=== PATIENT | female | born 1985 | race Caucasian/White ===

== ENCOUNTER 2017-12-09 19:51 | Emergency (ER) | payer BC, OTHER ==
[2017-12-09 20:11] VITALS: BP 128/87
[2017-12-09] MEDS ORDERED: Penicillin V Potassium 500 MG Tab PO ONE (20:36)
--- NOTE | 2017-12-09 20:51 | EDM.PDOC ---
ED HPI GENERAL MEDICAL PROBLEM - General Chief Complaint: Headache Stated Complaint: HEADACHE Time Seen by Provider: 12/09/17 20:24 Source of Information: Reports: Patient History Limitations: Reports: No Limitations - History of Present Illness INITIAL COMMENTS - FREE TEXT/NARRATIVE: Patient is a 32-year-old female presents ED complaining of left-sided facial pain for the past 2 days. States symptoms came on Sunday progressed to got worse. She has been taking Tylenol every 4 hours since minimal relief. She believes most of the discomfort is originating from her #18 tooth. States the pain initially started with the tooth with any temperature eating or drinking fluids now radiates into the jaw and has dissipated into her face extending to her ear and down her neck. She has a history of root canals 2 with similar symptoms but not as severe. States she cannot get comfortable. She has no history of trigeminal neuralgia and/or recent history of frequent headaches. She is 36-1/2 weeks . Due date is scheduled for January 04. States this morning she did have a fever documented as 101F. Has had poor sleep, poor appetite and notes pain does wax and wane in intensity. She is a appointment scheduled with a dentist scheduled for this coming Sunday. She denies any sore throat, ear drainage, difficult swallowing, nausea/vomiting, chest pain, shortness of breath, stiff neck, or any additional complaints. Treatments SPINNING BATH PERSON: Reports: Other (see below) Other Treatments SPINNING BATH PERSON: tylenol Left Headache Pain Score (Numeric/FACES): 8 - Related Data Allergies Allergy/AdvReac Type Severity Reaction Status Date / Time codeine Allergy Itching Verified 08/13/15 16:38 Home Meds: Home Meds Ondansetron [Zofran ODT] 4 mg PO Q8H PRN #10 tab.dis 08/12/15 [Rx] Metoclopramide [Reglan] 10 mg PO Q6H #10 tablet 08/13/15 [Rx] Citalopram Hydrobromide [Celexa] 20 mg PO DAILY 12/09/17 [History] Folic Acid 200 mg PO DAILY 12/09/17 [History] Montelukast Sodium [Singulair] 10 mg PO BEDTIME 12/09/17 [History] PNV95/Ferrous Fumarate/FA [ Tablet] 1 tab PO DAILY 05/20/18 [History] Past Medical History Gastrointestinal History: Reports: Other (See Below) Other Gastrointestinal History: c-diff Genitourinary History: Reports: Renal Calculus 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 ED EXAM, ENT - Physical Exam Exam: See Below Exam Limited By: No Limitations General Appearance: Alert, WD/WN, No Apparent Distress Eye Exam: Bilateral Eye: Normal Inspection Ears: Normal External Exam, Normal Canal, Hearing Grossly Normal, Normal TMs Nose: Normal Inspection, Normal Mucousa, No Blood Mouth/Throat: Normal Inspection, Normal Gums, Normal Lips, Normal Oropharynx, Dental Tenderness (#18). No: Dental Trauma, Drooling, Dry Mucous Membrane, Muffled Voice, Oral Ulcers, Peritonsillar Mass, Pharyngeal Erythema, Teething, Throat Pain, Throat Swelling, Tongue Swelling, Tonsillar Erythema, Tonsillar Exudates, Tonsillar Swelling, Trismus, Uvular Deviation, Uvular Edema Head: Atraumatic, Normocephalic Neck: Normal Inspection, Supple, Full Range of Motion, Other (tenderness along the left sided sternocleidomastoid no swelling, rash, decreased range of motion noted.). No: Lymphadenopathy (L), Lymphadenopathy (R) Respiratory/Chest: No Respiratory Distress, Lungs Clear, Normal Breath Sounds, No Accessory Muscle Use, Chest Non-Tender Cardiovascular: Normal Peripheral Pulses, Regular Rate, Rhythm Extremities: Normal Inspection Neurological: Alert, Oriented, CN II-XII Intact, Normal Cognition, No Motor/ Sensory Deficits Psychiatric: Normal Affect, Normal Mood Skin: Warm, Dry, Intact, Normal Color, No Rash Course - Vital Signs Last Recorded V/S: Last Vital Signs Temp 98.9 F 12/09/17 20:09 Pulse 93 12/09/17 20:09 Resp 20 12/09/17 20:09 BP 128/87 12/09/17 20:09 Pulse Ox 100 12/09/17 20:09 - Orders/Labs/Meds Labs: Laboratory Tests 12/09/17 12/09/17 Range/Units 20:58 20:58 WBC 13.44 H (3.98-10.04) K/mm3 RBC 3.80 L (3.98-5.22) M/mm3 Hgb 11.4 (11.2-15.7) gm/L Hct 34.3 (34.1-44.9) % MCV 90.3 (79.4-94.8) fl MCH 30.0 (25.6-32.2) pg MCHC 33.2 (32.2-35.5) g/dl RDW Std Deviation 44.3 (36.4-46.3) fL Plt Count 229 (182-369) K/mm3 MPV 10.9 (9.4-12.3) fl Neutrophils % (Manual) 74 H (40-60) % Band Neutrophils % 0 (0-10) % Lymphocytes % (Manual) 17 L (20-40) % Atypical Lymphs % 0 % Monocytes % (Manual) 8 (2-10) % Eosinophils % (Manual) 1 (0.7-5.8) % Basophils % (Manual) 0 L (0.1-1.2) Platelet Estimate Adequate Plt Morphology Comment Normal RBC Morph Comment Normal Sodium 139 (136-145) mEq/L Potassium 3.9 (3.5-5.1) mEq/L Chloride 106 (98-107) mEq/L Carbon Dioxide 22 (21-32) mEq/L Anion Gap 14.9 (5-15) BUN 9 (7-18) mg/dL Creatinine 0.7 (0.55-1.02) mg/dL Est Cr Clr Drug Dosing 122.81 mL/min Estimated GFR (MDRD) > 60 (>60) mL/min BUN/Creatinine Ratio 12.9 L (14-18) Glucose 85 (74-106) mg/dL Calcium 9.4 (8.5-10.1) mg/dL Total Bilirubin 0.2 (0.2-1.0) mg/dL AST 15 (15-37) U/L ALT 18 (14-59) U/L Alkaline Phosphatase 157 H (46-116) U/L C-Reactive Protein < 0.2 (<1.0) mg/dL Total Protein 6.0 L (6.4-8.2) g/dl Albumin 2.3 L (3.4-5.0) g/dl Globulin 3.7 gm/dL Albumin/Globulin Ratio 0.6 L (1-2) Meds: Medications Discontinued Medications Generic Name Dose Route Start Last Admin Trade Name Letty PRN Reason Stop Dose Admin Penicillin V Potassium 500 mg 12/09/17 20:36 12/09/17 21:03 Veetids PO 12/09/17 20:37 500 mg ONETIME ONE Administration - Re-Assessments/Exams Free Text/Narrative Re-Assessment/Exam: Performed inferior alveolar nerve block with Marcaine 0.5% with no significant change. Still complaining of some left-sided cheek and left sided lateral discomfort. No swelling noted. No lymphadenopathy. Suspect this coming from the tooth. Patient does have a history of poor dentition with this significant amount of dental work performed. Patient did not have significant relief with the dental injection. She did report a fever earlier this morning. Otherwise she 's been afebrile since. On examination do not have definitive diagnosis as to the cause. Patient states previous root canals had similar pain but this is more severe. She has an appt with Dentist for Sunday unless she can get in sooner. I have opted to obtain basic labs. Labs reviewed: White blood cell count 13.44, hemoglobin 11.4, neutrophil percent is 74, no bandemia chemistry panel essentially normal, alk phosphatase mildly elevated 157, CRP normal. 2139 Reassessment, patient states symptoms have not drastically improved. Discussed obtaining imaging such has ultrasound of the neck and/or CT maxillofacial bones to evaluate for abscess. With shared decision making we will wait and see if the discomfort improves with antibiotic therapy. She does not have a ride home. I will provide a short course of hydrocodone 5-325 for discomfort and a 7 day course of pen vee k. I will discharge patient home with instructions as documented. Departure - Departure Time of Disposition: 21:54 Disposition: Home, Self-Care 01 Condition: Good Clinical Impression: Pain in tooth, Left-sided face pain, Neck pain on left side - Discharge Information Instructions: Muscle Pain, Adult Referrals: Nurys Stevens MD [Primary Care Provider] - Forms: ED Department Discharge, ED Return to Work/School Form Additional Instructions: Take the full course of Pen-Vee K as prescribed. Suggest taken any over-the- counter probiotic while on this medication with her history of C. difficile. In addition he can take Tylenol 650 mg every 4-6 hours as needed for discomfort. May use Anbesol if you develop pain to the gumline of affected tooth. Apply warm/cold compresses to the affected cheek as needed for the course today. For severe pain take Wright one tab every 6 hours as needed. Do not take Wright and Tylenol together. Do not drive while taking the Wright. With taking the Wright suggest starting MiraLAX one capful every day as well. Please follow up with your dentist tomorrow for evaluation and definitive treatment if required. Please return to the ED if you develop any new or worsening symptoms as discussed.
== END 2017-12-09 22:19 | disposition home or self-care (01) ==
LOC: JD.ED 19:51
DX: K08.89 Other specified disorders of teeth and supporting structures (principal); M54.2 Cervicalgia; Z88.5 Allergy status to narcotic agent
CPT/HCPCS: 36415; 64400; 80053; 85007; 85027; 86140; 99283; A9270

== ENCOUNTER 2019-03-28 08:01 | Emergency (ER) | payer OTHER ==
[2019-03-28 08:23] VITALS: BP 114/101
--- NOTE | 2019-03-28 08:36 | EDM.PDOC ---
ED HPI GENERAL MEDICAL PROBLEM - General Chief Complaint: Chest Pain Stated Complaint: CHEST PAIN SINCE 2 AM Time Seen by Provider: 03/28/19 08:33 - History of Present Illness INITIAL COMMENTS - FREE TEXT/NARRATIVE: 33-year-old female presents to emergency room with chest pain. This started around 2 AM this morning fairly sudden onset left-sided substernal and left lower chest discomfort. Somewhat sharp pain did not radiate into her neck or arm she's had some left upper quadrant discomfort in her abdomen as well she has been under a lot of stress. Patient takes Pepcid 20 mg a day. Patient recently had significant dental work as recently as Sunday where she had a root canal. And she felt somewhat ill with some nausea and vomiting 1 after this was done. Prior to this she had some bone grafting done for dental work. Patient did take a test last night and was negative at home. The patient has been using quite a bit of ibuprofen with her recent dental work and dental pain. Chest Pain Score (Numeric/FACES): 7 - Related Data Allergies Allergy/AdvReac Type Severity Reaction Status Date / Time No Known Allergies Allergy Verified 03/28/19 08:17 Home Meds: Home Meds Ondansetron [Zofran ODT] 4 mg PO Q8H PRN #10 tab.dis 08/12/15 [Rx] Metoclopramide [Reglan] 10 mg PO Q6H #10 tablet 08/13/15 [Rx] Citalopram Hydrobromide [Celexa] 20 mg PO DAILY 12/09/17 [History] Folic Acid 200 mg PO DAILY 12/09/17 [History] Montelukast Sodium [Singulair] 10 mg PO BEDTIME 12/09/17 [History] PNV95/Ferrous Fumarate/FA [ Tablet] 1 tab PO DAILY 12/09/17 [History] Pantoprazole Sodium [Protonix] 40 mg PO Q24H #30 tablet. 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 Denies: Fever, Chills HEENT: Reports: Rhinitis, Sinus Problem. Denies: Ear Pain, Throat Swelling Respiratory: Reports: No Symptoms Cardiovascular: Reports: Chest Pain GI/Abdominal: Reports: Abdominal Pain (Left upper quadrant), Nausea (Briefly after her root canal), Vomiting (Onetime). Denies: Constipation, Diarrhea : Reports: No Symptoms Musculoskeletal: Reports: No Symptoms Skin: Reports: No Symptoms Neurological: Reports: Headache (She has a history of tension headaches) Psychiatric: Reports: No Symptoms ED EXAM, GENERAL - Physical Exam Exam: See Below Exam Limited By: Uncooperative General Appearance: Alert, No Apparent Distress Head: Atraumatic, Normocephalic Neck: Normal Inspection, Supple, Non-Tender, Full Range of Motion. No: Lymphadenopathy (L), Lymphadenopathy (R) Respiratory/Chest: No Respiratory Distress, Lungs Clear, Normal Breath Sounds Cardiovascular: Regular Rate, Rhythm, No Edema, No Murmur GI/Abdominal: Normal Bowel Sounds, Soft, Other (Left upper quadrant tenderness with palpation some epigastric discomfort no right upper quadrant lower quadrants are unremarkable no rigidity rebound or guarding noted) Back Exam: Normal Inspection, Full Range of Motion. No: CVA Tenderness (L), CVA Tenderness (R) Extremities: Normal Inspection, Non-Tender, No Pedal Edema Neurological: Alert, Oriented, Normal Cognition Psychiatric: Normal Affect, Normal Mood Lymphatic: No Adenopathy EKG INTERPRETATION EKG Date: 03/28/19 Rhythm: NSR [place]: Normal P-Wave: Absent (Normal P-wave she may have some [place] downsloping in several leads) QRS: Normal ST-T: Normal QT: Normal Comparison: NA - No Prior EKG Course - Vital Signs Last Recorded V/S: Last Vital Signs Temp 36.2 C 03/28/19 08:17 Pulse 97 03/28/19 08:17 Resp 18 09/06/19 08:17 BP 114/101 H 03/28/19 08:17 Pulse Ox 100 03/28/19 08:17 - Orders/Labs/Meds Orders: Active Orders 24 hr Category Date Time Status EKG Documentation Completion [RC] ASDIRECTED Care 03/28/19 08:32 Active HCG QUALITATIVE,URINE [URCHEM] Stat Lab 03/28/19 08:59 Ordered EKG 12 Lead [EK] Stat Ther 03/28/19 08:32 Ordered Labs: Laboratory Tests 03/28/19 03/28/19 03/28/19 Range/Units 09:10 09:10 09:10 WBC 7.98 (3.98-10.04) K/mm3 RBC 4.30 (3.98-5.22) M/mm3 Hgb 13.0 D (11.2-15.7) gm/L Hct 38.7 (34.1-44.9) % MCV 90.0 (79.4-94.8) fl MCH 30.2 (25.6-32.2) pg MCHC 33.6 (32.2-35.5) g/dl RDW Std Deviation 42.5 (36.4-46.3) fL Plt Count 271 (182-369) K/mm3 MPV 10.1 (9.4-12.3) fl Neutrophils % (Manual) 71 H (40-60) % Band Neutrophils % 0 (0-10) % Lymphocytes % (Manual) 23 (20-40) % Atypical Lymphs % 0 % Monocytes % (Manual) 5 (2-10) % Eosinophils % (Manual) 1 (0.7-5.8) % Basophils % (Manual) 0 L (0.1-1.2) Platelet Estimate Adequate Plt Morphology Comment Normal RBC Morph Comment Normal ESR 14 (0-20) mm/hr Sodium 141 (136-145) mEq/L Potassium 4.3 (3.5-5.1) mEq/L Chloride 107 (98-107) mEq/L Carbon Dioxide 24 (21-32) mEq/L Anion Gap 14.3 (5-15) BUN 19 H (7-18) mg/dL Creatinine 0.7 (0.55-1.02) mg/dL Est Cr Clr Drug Dosing 121.69 mL/min Estimated GFR (MDRD) > 60 (>60) mL/min BUN/Creatinine Ratio 27.1 H (14-18) Glucose 92 (74-106) mg/dL Calcium 9.5 (8.5-10.1) mg/dL Total Bilirubin 0.4 (0.2-1.0) mg/dL AST 15 (15-37) U/L ALT 32 (14-59) U/L Alkaline Phosphatase 59 (46-116) U/L Troponin I < 0.017 (0.00-0.056) ng/mL C-Reactive Protein 0.7 (<1.0) mg/dL Total Protein 7.0 (6.4-8.2) g/dl Albumin 3.3 L (3.4-5.0) g/dl Globulin 3.7 gm/dL Albumin/Globulin Ratio 0.9 L (1-2) Lipase 111 (73-393) U/L Meds: Medications Discontinued Medications Generic Name Dose Route Start Last Admin Trade Name Freq PRN Reason Stop Dose Admin Al Hydroxide/Mg Hydroxide 30 0 ml 03/28/19 09:04 03/28/19 09:18 ml/ Lidocaine HCl 15 ml PO 03/28/19 09:05 45 ml ONETIME ONE Administration Sucralfate 1 gm 03/28/19 10:08 03/28/19 10:20 Carafate PO 03/28/19 10:09 1 gm ONETIME ONE Administration - Re-Assessments/Exams Free Text/Narrative Re-Assessment/Exam: 03/28/19 10:46 Auditory evaluation including sedimentation rate C-reactive protein troponin are all normal. It's less likely that she has pericarditis. With further discussion the patient's been using quite a bit of ibuprofen over the last several weeks. She did not get much relief with a GI cocktail or Carafate however at this point we will have her stop her ibuprofen will use Tylenol 650 mg every 4 hours or thousand milligrams every 6 hours. She will continue her Pepcid increased to 20 mg twice a day and start Protonix 40 mg daily will put on a four-day course of Carafate. Her lipase is normal discussed the possibility of pancreatitis albeit her symptoms aren't really consistent with pancreatitis however the patient agrees we should not do a CAT scan at this point. And just focus on this being gastritis/GERD Departure - Departure Time of Disposition: 10:49 Disposition: Home, Self-Care 01 Clinical Impression: Drug-induced dyspepsia - Discharge Information Prescriptions: Pantoprazole Sodium [Protonix] 40 mg PO Q24H #30 tablet. Sucralfate [Carafate] 1 gm PO QIDACANDBED #28 ml Referrals: PCP,None [Primary Care Provider] - Forms: ED Department Discharge Additional Instructions: Return to the emergency room with any questions problems or worsening symptoms. Take medications as directed. Avoid ibuprofen as we discussed. Use Tylenol for discomfort 650 mg every 4 hours or thousand milligrams every 6 hours. If you need to take your pain pills for your dental work remember that each of those contained some Tylenol do not exceed 4000 mg in a 24-hour period. Follow-up in the Hospital clinic early this next week for recheck to make sure everything is getting better. [phone] - My Orders Last 24 Hours: My Active Orders 03/28/19 08:32 EKG Documentation Completion [RC] ASDIRECTED EKG 12 Lead [EK] Stat 03/28/19 08:59 HCG QUALITATIVE,URINE [URCHEM] Stat - Assessment/Plan Last 24 Hours: My Active Orders 03/28/19 08:32 EKG Documentation Completion [RC] ASDIRECTED EKG 12 Lead [EK] Stat 03/28/19 08:59 HCG QUALITATIVE,URINE [URCHEM] Stat
[2019-03-28] MEDS ORDERED: Alum Hydrox/Mag Hydrox/Simeth 30 ML, Lidocaine 2% 15 ML PO ONE ×2 (09:04)
[2019-03-28] MEDS ORDERED: Sucralfate Suspension 1 GM/10 ML Cup PO ONE (10:08)
--- NOTE | 2019-03-28 10:34 | CR ---
Chest: Two views of the chest were obtained. Comparison: No prior chest x-ray. Heart size and mediastinum are normal. Lungs are clear. Bony structures appear within normal limits. Depression: 1. Nothing acute is seen on two-view chest x-ray. Diagnostic code #1
[2019-03-28] MEDS ORDERED: Pantoprazole 40 MG Tab.CR PO STA (11:17)
[2019-03-28] MEDS ORDERED: Pantoprazole 40 MG Tab.CR ONE (11:19)
== END 2019-03-28 11:23 | disposition home or self-care (01) ==
LOC: JD.ED 08:01
DX: R10.13 Epigastric pain (principal); F41.9 Anxiety disorder, unspecified; Z79.899 Other long term (current) drug therapy
CPT/HCPCS: 36415; 71046; 80053; 83690; 84484; 85007; 85027; 85652; 86140; 93005; 99285; A9270